=== PATIENT | female | born 1970 | race Caucasian/White ===

== ENCOUNTER 2017-04-07 14:02 | Observation (INO) | payer MEDICAID ==
[~2017-04-07] VITALS: Ht 162.6 cm; Wt 76.0 kg
[2017-04-07] VITALS (10 sets, daily range): BP systolic 131–154; BP diastolic 86–99; PULSE 88–108; RESP 18; TEMP 98.1–98.6
[~2017-04-07 14:02] MED LIST changes: -ASPI81CH37 CHEW; +CALCIUM GLUCONATE 10% 1 GM/10 ML VIAL IV PUSH PRN
[2017-04-07] MEDS ORDERED: NIFEdipine 10 MG CAP PO PRN ×3 (14:15→15:00)
[2017-04-07] MEDS ORDERED: ONDANSETRON HCL 4 MG/2 ML VIAL IV PRN (14:15)
[2017-04-07] MEDS ORDERED: LABETALOL HCL 100 MG/20 ML VIAL IV PUSH PRN (14:15)
[2017-04-07] MEDS ORDERED: SODIUM CHLORIDE 0.9% FLUSH 5 ML FLUSH IV PRN (14:15)
--- NOTE | 2017-04-07 14:51 | PD ---
HPI Chief Complaint Elevated BP at OB Diagnostics Date Seen: Apr 07, 2017 Travel History International Travel<30 Days: No Contact w/Intl Traveler<30Days: No History of Present Illness HPI Patient is a 46 year old at 30-6/7 weeks gestation who presents today from OB diagnostics for elevated blood pressures. She states that she is otherwise feeling well. She denies any headaches, blurry vision, vision changes, abdominal pain, chest pain, shortness of breath, lower extremity edema. She denies any vaginal bleeding or discharge. No gush or leaking of fluid. Positive movement. care with care for women. History Past Medical History Medical History: Denies Significant Hx Obstetric History Obstetric History spontaneous Past Surgical History Surgical History: No Previous Surgery Family History Family History: Negative Social History Alcohol Use: No Tobacco Use: No Substance Abuse: No Allergies-Medications (Allergen,Severity, Reaction): Coded Allergies: No Known Allergies (Unverified , 04/01/17) Home Meds Active Scripts W/O Vit A W/ Fe Fumar (Citranatal [place]) 27-1-260 Mg Cap, 1 CAP PO DAILY for Nutritional Supplement, #30 CAP 11 Refills Prov:Kimberly Moore 04/02/17 Review of Systems Except as stated in HPI: all other systems reviewed are Neg General / Constitutional: No: Fever, Chills Eyes: No: Blurred Vision, Visual changes HENT: No: Headaches, Vertigo, Lightheadedness Cardiovascular: No: Chest Pain or Discomfort, Tachycardia Respiratory: No: Cough, Short of Breath Gastrointestinal: No: Abdominal Pain Genitourinary: No: Dysuria, Hematuria, Pelvic Pain, Discharge, Vaginal Bleeding Musculoskeletal: No: Edema Psychiatric: No: Substance Abuse Physical Exam Narrative GENERAL: Well-nourished, well-developed patient. SKIN: Warm and dry. HEAD: Normocephalic and atraumatic. EYES: No scleral icterus. No injection or drainage. ENT: No nasal drainage noted. Mucous membranes pink. Airway patent. NECK: Supple, trachea midline. No JVD. CARDIOVASCULAR: Regular rate and rhythm without murmurs, gallops, or rubs. RESPIRATORY: Breath sounds equal bilaterally. No accessory muscle use. ABDOMEN/GI: Abdomen soft, non-tender, bowel sounds present, no rebound, no guarding Gravid to 30 weeks size GENITOURINARY: External Genitalia: intact and normal in appearance Presentation: Breech Membranes: intact Uterine Contractions: none FHT's: Category: I Baseline: 140 Reactive: + Variability: moderate Decels: none EXTREMITIES: No cyanosis or edema. BACK: Nontender without obvious deformity. No CVA tenderness. NEUROLOGICAL: Awake and alert. Motor and sensory grossly within normal limits. Normal speech. Data Data Vital Signs Reviewed: Yes Orders Orders Place In Observation (04/07/17 ) Activity Bed Rest (04/07/17 14:14) Intake + Output Q1H (04/07/17 14:14) Notify Parameters (04/07/17 14:14) Heart CONTINUOUS (04/07/17 14:14) Urinary Catheter Management MARIA DOLORES.Q8H (04/07/17 14:14) ^ Check Deep Tendon Reflexes Q1H (04/07/17 14:14) Sodium Chloride 0.9% Flush (Ns Flush) (04/07/17 14:15) Sodium Chloride 0.9% Flush (Ns Flush) (04/07/17 21:00) Nifedipine (Procardia) (04/07/17 14:15) Nifedipine (Procardia) (04/07/17 14:45) Nifedipine (Procardia) (04/07/17 15:00) Labetalol Inj (Trandate Inj) (04/07/17 14:15) Calcium Gluconate Inj (Calcium Gluconate (04/07/17 13:00) Ondansetron Inj (Zofran Inj) (04/07/17 14:15) Cbc No Diff, Includes Plts (04/07/17 14:14) Comprehensive Metabolic Panel (04/07/17 14:14) Uric Acid (04/07/17 14:14) Total Protein 24hr Urine (04/07/17 14:14) Diet Regular Basic (04/07/17 Dinner) Urinalysis - C+S If Indicated (04/07/17 14:19) Vital Signs (Adult) .ON ADMISSION (04/07/17 14:45) ^ Labor Status (04/07/17 14:45) ^ Non Stress Test (04/07/17 14:45) MDM Medical Record Reviewed: Yes Narrative Course / MDM 46 year old at 30-6/7 weeks gestation. 1. IUP- Category I tracing, reassuring. 2. Elevated BP- 140-150's/90-100's, will obtain CBC, CMP, uric acid, UA for further evaluation 3. AMA 4. Positive screen for Trisomy 21 and Tetralogy of Fallot seen on US dw Dr. Berrios CBC, uric acid, CMP wnl Urine with trace protein Will admit for 24 hour observation and collect a 24 hour urine protein. Continue to monitor BP and consider starting antihypertensive if volatile or elevated. Sonia Vera MD, R3 Apr 07, 2017 14:51
[2017-04-07 15:10] LABS: HEMATOCRIT 39.9 % (35.0-46.0); MEAN CELL VOLUME 91.2 FL (80.0-100.0); MEAN CORPUSCULAR HEMOGLOBIN 30.2 PG (27.0-34.0); MEAN CORPUSCULAR HGB CONC 33.1 % (32.0-36.0); PLATELET COUNT 326 TH/MM3 (150-450); RED BLOOD COUNT 4.37 MIL/MM3 (4.00-5.30); RED CELL DISTRIBUTION WIDTH 14.7 % (11.6-17.2); REVIEW FLAG FINAL; WHITE BLOOD COUNT 11.5 TH/MM3 (4.0-11.0)
[2017-04-07 15:20] LABS: ANION GAP 11 MEQ/L (5-15); AST (GOT) 12 U/L (15-37); BICARBONATE 21.6 MEQ/L (21.0-32.0); BLOOD UREA NITROGEN 6 MG/DL (7-18); CHLORIDE 105 MEQ/L (98-107); GLOMERULAR FILTRATION RATE 162 ML/MIN (>89); POTASSIUM 3.7 MEQ/L (3.5-5.1); SODIUM (NA) 138 MEQ/L (136-145); URIC ACID 4.3 MG/DL (2.6-6.0)
[2017-04-07 15:23] LABS: ALKALINE PHOSPHATASE 152 U/L (45-117); ALT (GPT) 13 U/L (10-53); TOTAL BILIRUBIN ADULT 0.7 MG/DL (0.2-1.0)
--- NOTE | 2017-04-07 15:24 | HHI.HP ---
History & Physical H&P HPI Chief Complaint Elevated BP at OB Diagnostics Date Seen: Apr 07, 2017 Travel History International Travel<30 Days: No Contact w/Intl Traveler<30Days: No History of Present Illness HPI Patient is a 46 year old at 30-6/7 weeks gestation who presents today from OB diagnostics for elevated blood pressures. She states that she is otherwise feeling well. She denies any headaches, blurry vision, vision changes, abdominal pain, chest pain, shortness of breath, lower extremity edema. She denies any vaginal bleeding or discharge. No gush or leaking of fluid. Positive movement. care with care for women. History (Limited) History Past Medical History Medical History: Denies Significant Hx Obstetric History Obstetric History spontaneous Past Surgical History Surgical History: No Previous Surgery Family History Family History: Negative Social History Alcohol Use: No Tobacco Use: No Substance Abuse: No Allergies-Medications Allergies-Medications (Allergen,Severity, Reaction): Coded Allergies: No Known Allergies (Unverified , 04/01/17) Home Meds Active Scripts W/O Vit A W/ Fe Fumar (Citranatal [place]) 27-1-260 Mg Cap, 1 CAP PO DAILY for Nutritional Supplement, #30 CAP 11 Refills Prov:Kimberly Moore 04/02/17 ROS Review of Systems Except as stated in HPI: all other systems reviewed are Neg General / Constitutional: No: Fever, Chills Eyes: No: Blurred Vision, Visual changes HENT: No: Headaches, Vertigo, Lightheadedness Cardiovascular: No: Chest Pain or Discomfort, Tachycardia Respiratory: No: Cough, Short of Breath Gastrointestinal: No: Abdominal Pain Genitourinary: No: Dysuria, Hematuria, Pelvic Pain, Discharge, Vaginal Bleeding Musculoskeletal: No: Edema Psychiatric: No: Substance Abuse Physical Exam Physical Exam Narrative GENERAL: Well-nourished, well-developed patient. SKIN: Warm and dry. HEAD: Normocephalic and atraumatic. EYES: No scleral icterus. No injection or drainage. ENT: No nasal drainage noted. Mucous membranes pink. Airway patent. NECK: Supple, trachea midline. No JVD. CARDIOVASCULAR: Regular rate and rhythm without murmurs, gallops, or rubs. RESPIRATORY: Breath sounds equal bilaterally. No accessory muscle use. ABDOMEN/GI: Abdomen soft, non-tender, bowel sounds present, no rebound, no guarding Gravid to 30 weeks size GENITOURINARY: External Genitalia: intact and normal in appearance Presentation: Breech Membranes: intact Uterine Contractions: none FHT's: Category: I Baseline: 140 Reactive: + Variability: moderate Decels: none EXTREMITIES: No cyanosis or edema. BACK: Nontender without obvious deformity. No CVA tenderness. NEUROLOGICAL: Awake and alert. Motor and sensory grossly within normal limits. Normal speech. Data Data Data Vital Signs Reviewed: Yes Orders Orders Place In Observation (04/07/17 ) Activity Bed Rest (04/07/17 14:14) Intake + Output Q1H (04/07/17 14:14) Notify Parameters (04/07/17 14:14) Heart CONTINUOUS (04/07/17 14:14) Urinary Catheter Management MARIA DOLORES.Q8H (04/07/17 14:14) ^ Check Deep Tendon Reflexes Q1H (04/07/17 14:14) Sodium Chloride 0.9% Flush (Ns Flush) (04/07/17 14:15) Sodium Chloride 0.9% Flush (Ns Flush) (04/07/17 21:00) Nifedipine (Procardia) (04/07/17 14:15) Nifedipine (Procardia) (04/07/17 14:45) Nifedipine (Procardia) (04/07/17 15:00) Labetalol Inj (Trandate Inj) (04/07/17 14:15) Calcium Gluconate Inj (Calcium Gluconate (04/07/17 13:00) Ondansetron Inj (Zofran Inj) (04/07/17 14:15) Cbc No Diff, Includes Plts (04/07/17 14:14) Comprehensive Metabolic Panel (04/07/17 14:14) Uric Acid (04/07/17 14:14) Total Protein 24hr Urine (04/07/17 14:14) Diet Regular Basic (04/07/17 Dinner) Urinalysis - C+S If Indicated (04/07/17 14:19) Vital Signs (Adult) .ON ADMISSION (04/07/17 14:45) ^ Labor Status (04/07/17 14:45) ^ Non Stress Test (04/07/17 14:45) MDM MDM Medical Record Reviewed: Yes Narrative Course / MDM 46 year old at 30-6/7 weeks gestation. 1. IUP- Category I tracing, reassuring. 2. Elevated BP- 140-150's/90-100's, will obtain CBC, CMP, uric acid, UA for further evaluation 3. AMA 4. Positive screen for Trisomy 21 and Tetralogy of Fallot seen on US dw Dr. Berrios CBC, uric acid, CMP wnl Urine with trace protein Will admit for 24 hour observation and collect a 24 hour urine protein. Continue to monitor BP and consider starting antihypertensive if volatile or elevated. Sonia Vera MD, R3 Apr 07, 2017 15:24
[2017-04-07 15:57] LABS: BACTERIA, URINE RARE /hpf; BLOOD, URINE NEG (NEG); COMMENT (UR) CULT NOT INDICATED; CULTURE IF INDICATED CULT NOT INDICATED; GLUCOSE,URINE NEG (NEG); KETONE, URINE 150 mg/dL (NEG); NITRITE,URINE NEG (NEG); PH, URINE 5.5 (5.0-8.5); RENAL EPITHELIAL CELLS <1 /hpf; SQUAMOUS EPITHELIAL CELL URINE 1 /hpf (0-5); URINE COLOR YELLOW (YELLW/STRAW)
[2017-04-07] MEDS ORDERED: ZOLPIDEM TARTRATE 10 MG TAB PO PRN (21:00)
[2017-04-07] MEDS ORDERED: SODIUM CHLORIDE 0.9% FLUSH 5 ML FLUSH IV SCH (21:00)
[2017-04-08] VITALS (8 sets, daily range): BP systolic 133–156; BP diastolic 91–93; PULSE 86–107; RESP 18; TEMP 97.9–98.5
[2017-04-08 16:22] LABS: RUBELLA IGG ANTIBODY 206.4 IU/mL (10.0-500.0); RUBELLA STATUS IMMUNE (IMMUNE)
[2017-04-08 16:23] LABS: URINE TOTAL PROTEIN TIMED 6.5 MG/DL
--- NOTE | 2017-04-08 16:36 | HHI.DCPOC ---
Discharge Care Plan Diagnosis: (1) Hypertension affecting in third trimester Report Symptoms to Your Doctor -Temperature above 100.5 degrees -Redness, of incision or excessive or foul smelling drainage -Unusual pain or calf pain -Increased vaginal bleeding -Painful or difficulty urinating -Feelings of extreme sadness or anxiety after 2 weeks Goals to Promote Your Health * To prevent worsening of your condition and complications * To maintain your health at the optimal level Directions to Meet Your Goals Take your medications as prescribed Follow your dietary instruction Follow activity as directed Ensure plenty of rest for recovery Drink fluids for hydration Keep your appointments as scheduled Take your immunizations and boosters as scheduled If your symptoms worsen call your PCP, if no PCP go to Urgent Care Center or Emergency Room Smoking is Dangerous to Your Health. Avoid second hand smoke Call the 24-hour crisis hotline for domestic abuse at Sonia Vera MD, R3 Apr 08, 2017 16:36
[2017-04-08] MEDS ORDERED: ASPI81CH37 CHEW (16:38)
--- NOTE | 2017-04-08 16:48 | PD.OB.ANTE ---
Subjective Interval History Patient seen and examined this morning. No acute events over night. Patient states that she is feeling well, denies any headaches, blurry vision, vision changes, abdominal pain, chest pain, leg pain, shortness of breath, lower extremity edema. She denies any vaginal bleeding or discharge. No gush or leaking of fluid. Positive movement. Objective Vital Signs Vital Signs Date Time Temp Pulse Resp B/P (MAP) Pulse Ox O2 Delivery O2 Flow Rate FiO2 04/08/17 15:40 98.5 18 04/08/17 15:39 107 156/93 (114) 04/08/17 11:06 18 04/08/17 11:06 97.9 04/08/17 11:04 93 137/92 (107) 04/08/17 07:58 97.9 86 18 143/91 (108) 04/08/17 03:19 98.2 18 04/08/17 03:18 86 133/91 (105) 04/08/17 02:45 18 04/07/17 22:45 18 04/07/17 22:34 88 131/86 (101) 04/07/17 19:59 18 04/07/17 19:54 92 145/90 (108) 04/07/17 19:53 98.6 Lab & Micro Results Test 04/08/17 14:30 Urine Total Volume 24 Hours 1200 ML Urine Total Protein 24 Hour 78 MG/24HR Rubella Immunity Screen IMMUNE Rubella Antibody, Quantitative 206.4 IU/mL Physical Exam GENERAL: Well-nourished, well-developed patient. CARDIOVASCULAR: Regular rate and rhythm without murmurs, gallops, or rubs. RESPIRATORY: Breath sounds equal bilaterally. No accessory muscle use. ABDOMEN/GI: Abdomen soft, non-tender. EXTREMITIES: No cyanosis. 1+ edema, non-tender, without signs of DVT. Assessment and Plan Assessment and Plan 46 year old at 31-0/7 weeks gestation. 1. IUP- Category I tracing, reassuring. 2. Elevated BP- 140-150's/90-100's 3. CBC, CMP, UA not indicative of preeclampsia 4. F/U 24 hour urine protein 5. AMA 6. Positive screen for Trisomy 21 and Tetralogy of Fallot seen on US Ned Glez MD R1 Apr 08, 2017 16:48
[2017-04-22] MEDS ORDERED: PREN1CAP7 PO (08:42)
== END 2017-04-08 17:35 | disposition home or self-care (01) ==
LOC: HOBED 14:02 → H2EA 15:52
PROVIDERS: ADMIT Obstetrics & Gynecology Maternal & Fetal Medicine; ATTEND Obstetrics & Gynecology Maternal & Fetal Medicine
DX: O16.3 Unspecified maternal hypertension, third trimester (principal); O99.343 Other mental disorders complicating pregnancy, third trimester; F41.9 Anxiety disorder, unspecified; Z3A.31 31 weeks gestation of pregnancy
CPT/HCPCS: 59025; 80053; 80074; 81001; 84157; 84550; 85027; 86592; 86703; 86762; 86850; 86900; 86901; 99285; G0378

== ENCOUNTER → 2017-04-07 | Outpatient (CLI) | payer MEDICAID ==
[~2017-04-07] MED LIST: ASPI81CH37 CHEW; PREN1CAP7 PO
== END ==
LOC: HPND 12:04
PROVIDERS: ATTEND Obstetrics & Gynecology
DX: O09.513 Supervision of elderly primigravida, third trimester (principal); O09.33 Supervision of pregnancy with insufficient antenatal care, third trimester
CPT/HCPCS: 76811; 76817; 76825; 76827; 93325

== ENCOUNTER 2017-04-28 12:48 | Inpatient (IN) | payer MEDICAID ==
[~2017-04-28] VITALS: Ht 162.6 cm; Wt 78.0 kg
[~2017-04-28 12:48] MED LIST changes: +ASPI81CH37 CHEW; -CALCIUM GLUCONATE 10% 1 GM/10 ML VIAL IV PUSH PRN
[2017-04-28] MEDS ORDERED: SODIUM CHLORIDE 0.9% FLUSH 5 ML FLUSH IV PRN (14:15)
[2017-04-28] MEDS ORDERED: NIFEdipine 10 MG CAP PO PRN ×3 (14:15→15:00)
[2017-04-28] MEDS ORDERED: CALCIUM GLUCONATE 10% 1 GM/10 ML VIAL IV PUSH PRN (14:15)
[2017-04-28] MEDS ORDERED: ONDANSETRON ODT 4 MG TAB PO PRN (14:15)
[2017-04-28] MEDS ORDERED: ACETAMINOPHEN 325 MG TAB PO PRN (14:15)
--- NOTE | 2017-04-28 14:45 | HHI.HP ---
HPI Chief Complaint Pre-Eclampsia Date Seen: Apr 28, 2017 Travel History International Travel<30 Days: No Contact w/Intl Traveler<30Days: No History of Present Illness HPI Mrs. Arechiga is a 46 y/o at 33/6 weeks gestation admitted to OB antepartum service for rule out preeclampsia. Patient presented to OB diagnosed 6 this morning was found to have blood pressures of 170-180s/100s. She states that last week during her regular OB visit with Dr. Xiao her pressures were in the 120s over 90s. She endorses good movement and denies any loss of fluid, vaginal discharge, or vaginal bleeding. She denies any headaches, right upper quadrant pain, vision changes, or any other neurologic symptoms. She denies a complete review of systems otherwise. Of note, complicated by positive for screening for trisomy 21 and ultrasound consistent with tetralogy of flow. Weeks Gestation: 33 Para: 2 : 0 History Past Medical History Medical History: Denies Significant Hx Obstetric History Obstetric History x1 spontaneous Current complicated by positive trisomy 21 screen and tetralogy of flow on ultrasound Past Surgical History Surgical History: No Previous Surgery Family History Narrative Family History Father from blood clot when she was 12 years old, unknown other family history. Family History: Negative Social History Alcohol Use: No Tobacco Use: No Substance Abuse: No Allergies-Medications (Allergen,Severity, Reaction): Coded Allergies: No Known Allergies (Unverified , 04/21/17) Home Meds Active Scripts W/O Vit A W/ Fe Fumar (Citranatal [place]) 27-1-260 Mg Cap, 1 CAP PO DAILY for Nutritional Supplement, #30 CAP 11 Refills Prov:Yumi Bran 04/22/17 Aspirin (Aspirin Low Dose) 81 Mg Chew, 81 MG CHEW DAILY, #30 TAB 0 Refills Prov:Sonia Vera MD, R3 04/08/17 Review of Systems Except as stated in HPI: all other systems reviewed are Neg Physical Exam Narrative GENERAL: Well-nourished, well-developed patient. SKIN: Warm and dry. HEAD: Normocephalic and atraumatic. EYES: No scleral icterus. No injection or drainage. ENT: No nasal drainage noted. Mucous membranes pink. Airway patent. NECK: Supple, trachea midline. No JVD. CARDIOVASCULAR: Regular rate and rhythm without murmurs, gallops, or rubs. RESPIRATORY: Breath sounds equal bilaterally. No accessory muscle use. ABDOMEN/GI: Abdomen soft, non-tender, bowel sounds present, no rebound, no guarding Gravid to 33 weeks FHT's: Category: 1 Baseline: 130s Reactive: Positive Variability: Moderate Decels: Negative EXTREMITIES: No cyanosis or edema. BACK: Nontender without obvious deformity. No CVA tenderness. NEUROLOGICAL: Awake and alert. Motor and sensory grossly within normal limits. Five out of 5 muscle strength in all muscle groups. Normal speech. Caprini VTE Risk Assessment Caprini VTE Risk Assessment: Mod/High Risk (score >= 2) Caprini Risk Assessment Model Point Value = 1 Point Value = 2 Point Value = 3 Point Value = 5 Age 41-60 Minor surgery BMI > 25 kg/m2 Swollen legs Varicose veins or History of unexplained or recurrent spontaneous Oral contraceptives or hormone replacement Sepsis (< 1 month) Serious lung disease, including pneumonia (< 1 month) Abnormal pulmonary function Acute myocardial infarction Congestive heart failure (< 1 month) History of inflammatory bowel disease Medical patient at bed rest Age 61-74 Arthroscopic surgery Major open surgery (> 45 min) Laparoscopic surgery (> 45 min) Malignancy Confined to bed (> 72 hours) Immobilizing plaster cast Central venous access Age >= 75 History of VTE Family history of VTE Factor V Leiden Prothrombin [id number] Lupus anticoagulant Anticardiolipin antibodies Elevated serum homocysteine Heparin-induced thrombocytopenia Other congenital or acquired thrombophilia Stroke (< 1 month) Elective arthroplasty Hip, pelvis, or leg fracture Acute spinal cord injury (< 1 month) Prophylaxis Regimen Total Risk Factor Score Risk Level Prophylaxis Regimen 0-1 Low Early ambulation 2 Moderate Order ONE of the following: *Sequential Compression Device (SCD) *Heparin 5000 units SQ BID 3-4 Higher Order ONE of the following medications: *Heparin 5000 units SQ TID *Enoxaparin/Lovenox 40 mg SQ daily (WT < 150 kg, CrCl > 30 mL/min) *Enoxaparin/Lovenox 30 mg SQ daily (WT < 150 kg, CrCl > 10-29 mL/min) *Enoxaparin/Lovenox 30 mg SQ BID (WT < 150 kg, CrCl > 30 mL/min) AND/OR *Sequential Compression Device (SCD) 5 or more Highest Order ONE of the following medications: *Heparin 5000 units SQ TID (Preferred with Epidurals) *Enoxaparin/Lovenox 40 mg SQ daily (WT < 150 kg, CrCl > 30 mL/min) *Enoxaparin/Lovenox 30 mg SQ daily (WT < 150 kg, CrCl > 10-29 mL/min) *Enoxaparin/Lovenox 30 mg SQ BID (WT < 150 kg, CrCl > 30 mL/min) AND *Sequential Compression Device (SCD) Data Data Vital Signs Reviewed: Yes Orders Orders Us Ob Repeat/Fu(Growth) (04/28/17 ) Ob (2e) Additional Admit Info (04/28/17 14:17) Place In Observation (04/28/17 ) Code Status (04/28/17 14:13) Resp Pulse Oximetry (04/28/17 ) Activity Bed Rest (04/28/17 14:13) Intake + Output Q1H (04/28/17 14:13) Notify Parameters (04/28/17 14:13) Heart CONTINUOUS (04/28/17 14:13) Urinary Catheter Management MARIA DOLORES.Q8H (04/28/17 14:13) ^ Check Deep Tendon Reflexes Q1H (04/28/17 14:13) Sodium Chloride 0.9% Flush (Ns Flush) (04/28/17 14:15) Sodium Chloride 0.9% Flush (Ns Flush) (04/28/17 21:00) Nifedipine (Procardia) (04/28/17 14:15) Nifedipine (Procardia) (04/28/17 14:45) Nifedipine (Procardia) (04/28/17 15:00) Betamethasone Inj ([place] Soluspan In (04/28/17 14:15) Calcium Gluconate Inj (Calcium Gluconate (04/28/17 14:15) Acetaminophen (Tylenol) (04/28/17 14:15) Ondansetron Odt (Zofran Odt) (04/28/17 14:15) [id number]-Iron Prenat ([place] (04/29/17 09:00) Cbc No Diff, Includes Plts (04/28/17 14:13) Comprehensive Metabolic Panel (04/28/17 14:13) Uric Acid (04/28/17 14:13) Urinalysis - C+S If Indicated (04/28/17 14:13) Total Protein 24hr Urine (04/28/17 14:13) Specimen To Be Collected PRN (04/28/17 14:13) Assessment/Plan Problem List: (1) 33 weeks gestation of ICD Codes: Z3A.33 - 33 weeks gestation of Status: Acute (2) Hypertension affecting in third trimester ICD Codes: O16.3 - Unspecified maternal hypertension, third trimester Status: Acute Assessment and Plan Mrs. Arechiga is a 46 y/o at 33/6 weeks gestation admitted to OB antepartum service for rule out preeclampsia. 1. IUP at 33 weeks -Continue routine antepartum care -Continue vitamin -Encourage by mouth hydration -FHT category 1, reassuring 2. PIH -Patient to be admitted for rule out preeclampsia -24-hour urine protein study ordered -CBC, CMP, and uric acid pending -Betamethasone 2 days ordered -Procardia her PIH protocol, transition to IV Hydralazine with refractive BP -Discussed with MFM, who recommends evaluation for preeclampsia overnight and likely transfer tomorrow as patient is high risk for early delivery with baby being positive for Down Syndrome and Tetralogy of Fallot. SDW: Dr. Berrios Discharge Planning Patient likely to be transferred tomorrow Adrien Vazquez MD R2 Apr 28, 2017 14:45
[2017-04-28] MEDS: BETAMETHASONE SOD PHOS/ACETATE SUSP 30 MG/5 ML VIAL IM SCH (15:26)
[2017-04-28] MEDS ORDERED: LORazepam 2 MG/ML VIAL ONE (15:31)
[2017-04-28] MEDS ORDERED: LORazepam 1 MG TAB PO ONE ×2 (15:45→22:45)
[2017-04-28] MEDS ORDERED: hydrALAZINE HCL 20 MG/ML VIAL ONE (15:57)
[2017-04-28 16:42] LABS: HEMATOCRIT 40.6 % (35.0-46.0); MEAN CELL VOLUME 91.7 FL (80.0-100.0); MEAN CORPUSCULAR HGB CONC 32.7 % (32.0-36.0); PLATELET COUNT 258 TH/MM3 (150-450); RED BLOOD COUNT 4.42 MIL/MM3 (4.00-5.30); RED CELL DISTRIBUTION WIDTH 14.4 % (11.6-17.2); REVIEW FLAG FINAL; WHITE BLOOD COUNT 9.1 TH/MM3 (4.0-11.0)
[2017-04-28 16:44] LABS: BACTERIA, URINE FEW /hpf; BLOOD, URINE NEG (NEG); COMMENT (UR) CULT NOT INDICATED; CULTURE IF INDICATED CULT NOT INDICATED; GLUCOSE,URINE NEG (NEG); KETONE, URINE NEG (NEG); NITRITE,URINE NEG (NEG); PH, URINE 5.5 (5.0-8.5); SQUAMOUS EPITHELIAL CELL URINE 1 /hpf (0-5); URINE COLOR COLORLESS (YELLW/STRAW)
[2017-04-28 17:04] LABS: ALT (GPT) 14 U/L (10-53); ANION GAP 8 MEQ/L (5-15); AST (GOT) 12 U/L (15-37); BICARBONATE 22.8 MEQ/L (21.0-32.0); BLOOD UREA NITROGEN 5 MG/DL (7-18); CHLORIDE 107 MEQ/L (98-107); GLOMERULAR FILTRATION RATE 142 ML/MIN (>89); POTASSIUM 4.3 MEQ/L (3.5-5.1); SODIUM (NA) 138 MEQ/L (136-145); URIC ACID 4.3 MG/DL (2.6-6.0)
[2017-04-28 17:05] LABS: ALKALINE PHOSPHATASE 184 U/L (45-117); TOTAL BILIRUBIN ADULT 0.5 MG/DL (0.2-1.0)
[2017-04-28] MEDS: SODIUM CHLORIDE 0.9% FLUSH 5 ML FLUSH IV SCH (21:00)
[2017-04-29] MEDS ORDERED: NIFEdipine 10 MG CAP ONE (07:12)
[2017-04-29] MEDS ORDERED: NIFEdipine 20 MG CAP PO ONE (07:30)
[2017-04-29] MEDS: LORazepam 1 MG TAB PO PRN ×2 (08:39→15:36)
[2017-04-29] MEDS: SODIUM CHLORIDE 0.9% FLUSH 5 ML FLUSH IV SCH (08:39)
[2017-04-29] MEDS ORDERED: MULTIVIT/MIN/PREN/FOL AC/IRON PRENATAL TAB PO SCH (09:00)
[2017-04-29] MEDS ORDERED: INFLUENZA VIRUS VACCINE (QUADRIVALENT) 0.5 ML SYR IM ONE (10:00)
[2017-04-29] MEDS: BETAMETHASONE SOD PHOS/ACETATE SUSP 30 MG/5 ML VIAL IM SCH (15:22)
--- NOTE | 2017-04-29 15:34 | PD.OB.ANTE ---
Subjective Diagnosis: (1) 33 weeks gestation of Diagnosis: Principal (2) Hypertension affecting in third trimester Diagnosis: Principal Interval History Patient seen and examined this morning by medical team. No acute events overnight per nursing staff. Patient remains hypertensive overnight up to 160s/ 100s requiring multiple doses of Procardia. Patient currently has no complaints and denies any headaches, visual changes, right quadrant pain, or other neurological symptom. She otherwise denies a complete review of systems. Antepartum ROS: Reports: movement normal, Denies: New complaints, Loss of fluid, Vaginal bleeding, Contractions (Adrien Vazquez MD R2) Objective Physical Exam GENERAL: Well-nourished, well-developed patient. CARDIOVASCULAR: Tachycardic with regular rhythm. No MGR appreciated. RESPIRATORY: Breath sounds equal bilaterally. No accessory muscle use. ABDOMEN/GI: Abdomen soft, non-tender. Fundus: 34 weeks GENITOURINARY: FHT's: Category: 1 at this time (Has had intermittent variable decelerations, but none at this time; currently reactive) Baseline: 140s Reactive: Positive Variability: Moderate Decels: None EXTREMITIES: No cyanosis or edema, non-tender, without signs of DVT. (Adrien Vazquez MD R2) Assessment and Plan Problem List: (1) 33 weeks gestation of ICD Codes: Z3A.33 - 33 weeks gestation of Status: Acute (2) Hypertension affecting in third trimester ICD Codes: O16.3 - Unspecified maternal hypertension, third trimester Status: Acute Assessment and Plan Mrs. Arechiga is a 46 y/o at 33/6 weeks gestation admitted to OB antepartum service for rule out preeclampsia. 1. IUP at 33 weeks -Continue routine antepartum care -Continue vitamin -Encourage by mouth hydration -FHT category 2, continue to monitor 2. PIH -Patient to be admitted for rule out preeclampsia -24-hour urine protein study: Pending -CBC: Within normal limits, platelets 58 -CMP: Within normal limits, AST 12, ALT 14 -Uric acid: Within normal limits, 4.3 -Betamethasone 2, given 04/28 and 04/29 -Procardia her PIH protocol, transition to IV Hydralazine with refractive BP ( one 10mg dose and three 20mg doses given over last 24 hours with last dose at 0715) -Discussed with MFM, who recommends evaluation for preeclampsia overnight and likely transfer tomorrow as patient is high risk for early delivery with baby being positive for Down Syndrome and Tetralogy of Fallot. 3. Anxiety -Patient with multiple anxiety attacks and history of anxiety' -Ativan 1mg PO Q6H as needed for anxiety Discharge: Dr. Voss has arranged EMS transfer to [facility] for continued care with Dr. Jules Srinivasan. Patient to received second dose of betamethasone and complete 24 hour urine study prior to transfer. Patient agrees with medical plan and all questions answered. SDW: Dr. Voss (Adrien Vazquez MD R2) Assessment and Plan She is a 46-year-old . Her care is complicated by advanced maternal age, chronic hypertension, fetus with trisomy 21/Down syndrome and tetralogy of flow. She was admitted yesterday for evaluation of elevated blood pressures in the 170s to 190s over 100s. As per the maternal medicine specialist she was admitted and preeclampsia evaluation obtained here with the plan for transfer of the patient after 24 hour urine and betamethasone course was completed. She completed her 24-hour urine, and her blood pressures and been stable on the Procardia hypertension regimen. She has been undergoing continuous monitoring and has had some intermittent variables and other decelerations. During the day today heart rate tracing was overall reassuring with a few intermittent decelerations but no repetitive decelerations. At the time of discharge the heart rate tracing is reassuring and category 1 with moderate long-term variability and good accelerations as well as no decelerations. I spoke with Dr. Srinivasan at [facility] who agreed to the transfer as we are concerned the patient may need to be delivered early based on her accelerated hypertension and/or in the event heart rate decelerations become repetitive or severe. (Yumi Voss MD) Adrien Vazquez MD R2 Apr 29, 2017 15:34 Yumi Voss MD Apr 29, 2017 20:59
[2017-04-29 18:06] LABS: URINE TOTAL PROTEIN TIMED 6.8 MG/DL
== END 2017-04-29 17:36 | disposition short-term general hospital (02) | DRG 781 ==
LOC: HPND 12:48 → H2EA 14:10 → OBSVTOIN 04-29 00:51
PROVIDERS: ADMIT Obstetrics & Gynecology Maternal & Fetal Medicine; ATTEND Obstetrics & Gynecology Maternal & Fetal Medicine
DX: O14.93 Unspecified pre-eclampsia, third trimester (principal); O35.1XX0 Maternal care for (suspected) chromosomal abnormality in fetus, not applicable or unspecified; O09.523 Supervision of elderly multigravida, third trimester; O28.0 Abnormal hematological finding on antenatal screening of mother; Z3A.33 33 weeks gestation of pregnancy
CPT/HCPCS: 76816; 76818; 80053; 81001; 84157; 84550; 85027; J0360; J0702; J2060